=== PATIENT | female | born 1950 | race Caucasian/White ===

== ENCOUNTER 2017-03-22 16:09 | Outpatient (CLI) | payer OTHER | END 2017-03-22 19:40 | disposition home or self-care (01) | LOC: SMA 16:09 | PROVIDERS: ATTEND Family Medicine | DX: Z12.31 Encounter for screening mammogram for malignant neoplasm of breast (principal); R92.1 Mammographic calcification found on diagnostic imaging of breast | CPT/HCPCS: 77067 ==

== ENCOUNTER 2017-04-05 07:50 | Outpatient (CLI) | payer OTHER | END 2017-04-05 19:18 | disposition home or self-care (01) | LOC: SMA 07:50 | DX: N63.20 Unspecified lump in the left breast, unspecified quadrant (principal); R92.8 Other abnormal and inconclusive findings on diagnostic imaging of breast | CPT/HCPCS: 76642; 77065 ==

== ENCOUNTER 2017-11-08 08:20 | Outpatient (CLI) | payer OTHER | END 2017-11-08 17:56 | disposition home or self-care (01) | LOC: SMA 08:20 | DX: R92.8 Other abnormal and inconclusive findings on diagnostic imaging of breast (principal) | CPT/HCPCS: 76642 ==

== ENCOUNTER 2018-04-25 08:19 | Outpatient (CLI) | payer OTHER | END 2018-04-25 19:19 | disposition home or self-care (01) | LOC: SMA 08:19 | PROVIDERS: ATTEND Family Medicine | DX: N60.02 Solitary cyst of left breast (principal) | CPT/HCPCS: 76642; 77066 ==

== ENCOUNTER 2019-04-17 13:48 | Outpatient (CLI) | payer OTHER | END 2019-04-17 21:20 | disposition home or self-care (01) | LOC: SMA 13:48 | PROVIDERS: ATTEND Family Medicine | DX: Z12.31 Encounter for screening mammogram for malignant neoplasm of breast (principal); N64.89 Other specified disorders of breast | CPT/HCPCS: 77067 ==

== ENCOUNTER 2019-05-08 10:13 | Outpatient (CLI) | payer OTHER | END 2019-05-09 20:14 | disposition home or self-care (01) | LOC: SUS 10:13 | PROVIDERS: ATTEND Family Medicine | DX: N60.02 Solitary cyst of left breast (principal); R92.8 Other abnormal and inconclusive findings on diagnostic imaging of breast | CPT/HCPCS: 76641; 77065 ==